=== PATIENT | female | born 1995 | race Caucasian/White ===

== ENCOUNTER 2020-03-13 13:46 | Emergency (ER) | payer OTHER ==
[~2020-03-13] VITALS: Ht 170.2 cm; Wt 80.6 kg
[~2020-03-13 13:46] MED LIST: IBUP600T42 PO; MAPA500T2 PO
[2020-03-13] MEDS ORDERED: PARA1IUD IU (13:57)
--- OUTSIDE RECORDS SUMMARY | 2020-03-13 14:27 | CCD ---
Author Author [facility] Organization [facility] Address Unknown Phone Unavailable Support Name Relationship Address Phone FAUSTINO PATEL Next Of Kin [address] [place], [place] [id number] CHYNA VAUGHN Next Of Kin [address] [place], [place] [phone] Re-disclosure Warning The records that you are about to access may contain information from federally-assisted alcohol or drug abuse programs. If such information is present, then the following federally mandated warning applies: This information has been disclosed to you from records protected by federal confidentiality rules (42 CFR part 2). The federal rules prohibit you from making any further disclosure of this information unless further disclosure is expressly permitted by the written consent of the person to whom it pertains or as otherwise permitted by 42 CFR part 2. A general authorization for the release of medical or other information is NOT sufficient for this purpose. The Federal rules restrict any use of the information to criminally investigate or prosecute any alcohol or drug abuse patient.The records that you are about to access may contain highly sensitive health information, the redisclosure of which is protected by Article 27-F of the [facility] Public Health law. If you continue you may have access to information: Regarding HIV / AIDS; Provided by facilities licensed or operated by the [facility] Office of Mental Health; or Provided by the [facility] Office for People With Developmental Disabilities. If such information is present, then the following [facility] mandated warning applies: This information has been disclosed to you from confidential records which are protected by state law. State law prohibits you from making any further disclosure of this information without the specific written consent of the person to whom it pertains, or as otherwise permitted by law. Any unauthorized further disclosure in violation of state law may result in a fine or halfway sentence or both. A general authorization for the release of medical or other information is NOT sufficient authorization for further disc losure. Insurance Providers Payer name Policy type / Coverage type Policy ID Covered republican ID Covered republican's relationship to archuleta Policy Archuleta Plan Information [facility] [id number] [facility] [id number] [facility] [id number]
--- NOTE | 2020-03-13 15:30 | REP ---
INDICATION: heavy bleeding, paraguard insertion 03/04 concern for placeme. COMPARISON: None. TECHNIQUE: Transabdominal scanning is performed.. FINDINGS: Uterine dimensions are normal at 8.1 x 4.5 x 6.0 cm. Endometrial echo is 0.6 cm thick and centrally placed. No free fluid is seen in the cul-de-sac. Visualized bladder marquez are smooth. An IUD is seen in good position in the uterine endometrium. The right ovary has dimensions of 4.3 x 2.3 x 2.6 cm. It's Doppler flow is normal with a resistive index of 0.57. There is a 2.4 x 1.9 by 2.4 cm cyst in the right ovary. The left ovary dimensions are normal as well at 2.7 x 1.4 x 1.8 cm. It's Doppler flow was normal with resistive index of 0.50. IMPRESSION: Normal pelvic sonography. IUD in good position. 2.4 cm follicle cyst right ovary. <Electronically signed by Kyle Cee > 03/13/20 [id number]
[2020-03-13 15:43] LABS: HEMATOCRIT 40.6 % (36.0-47.0); HEMOGLOBIN 12.9 g/dl (12.0-15.5); MEAN CORPUSCULAR HEMOGLOBIN 29.8 pg (27.0-33.0); MEAN CORPUSCULAR HGB CONC 31.8 g/dl (32.0-36.5); MEAN CORPUSCULAR VOLUME 93.8 fl (80.0-96.0); PLATELET COUNT, AUTOMATED 350 10^3/uL (150-450); RED BLOOD COUNT 4.33 10^6/uL (4.00-5.40); WHITE BLOOD COUNT 8.3 10^3/uL (4.0-10.0)
[2020-03-13 16:11] VITALS: BP 118/64
== END 2020-03-13 16:12 | disposition home or self-care (01) ==
LOC: M ED 13:46
DX: N92.6 Irregular menstruation, unspecified (principal); Z88.0 Allergy status to penicillin; Z97.5 Presence of (intrauterine) contraceptive device

== ENCOUNTER → 2020-10-20 | Outpatient (CLI) | payer OTHER ==
[~2020-10-20] MED LIST changes: +PARA1IUD IU
--- NOTE | 2020-10-20 08:46 | REP ---
INDICATION: RT OVARIAN CYST. Dyspareunia. COMPARISON: Comparison pelvic sonography March 13, 2020. 2.0 cm para ovarian cyst by prior sonography. TECHNIQUE: Transabdominal and transvaginal scanning were performed. FINDINGS: Uterine dimensions are normal at 9.1 x 4.9 x 6.9 cm. Endometrial echo is 1.0 cm thick and centrally placed. Minimal free fluid is seen in the cul-de-sac. Visualized bladder marquez are smooth. IUD is seen in good position in the endometrium. There is a trace amount of endometrial fluid adjacent the IUD. The right ovary has dimensions of 4.0 x 2.8 x 3.1 cm. It's Doppler flow is normal with a resistive index of 0.56. There is a 2.7 x 2.0 x 1.9 cm para ovarian cyst. An involuting follicle is seen in the right ovary itself 2.2 cm in greatest diameter. The left ovary dimensions are normal as well at 2.4 x 2.4 x 3.1 cm. It's Doppler flow was normal with resistive index of 0.45. IMPRESSION: IUD is seen in good position. There is a 2.7 cm paraovarian cyst in the right adnexa. Otherwise negative. <Electronically signed by Kyle Cee > 10/20/20 [id number]
== END ==
LOC: M RAD 07:03
PROVIDERS: ATTEND Nurse Practitioner Women's Health
DX: N83.291 Other ovarian cyst, right side (principal); Z97.5 Presence of (intrauterine) contraceptive device

== ENCOUNTER 2021-06-23 16:20 | Emergency (ER) | payer OTHER ==
[~2021-06-23] VITALS: Ht 170.2 cm; Wt 83.3 kg
[2021-06-23 16:21] VITALS: BP 121/77
== END 2021-06-23 16:47 | disposition left against medical advice (07) ==
LOC: M ED 16:20
DX: Z53.21 Procedure and treatment not carried out due to patient leaving prior to being seen by health care provider (principal)

== ENCOUNTER → 2022-10-09 | Outpatient (REF) | payer OTHER | LOC: M LAB REF 11:44 | PROVIDERS: ATTEND Physician Assistant | DX: R30.0 Dysuria (principal) ==

== ENCOUNTER → 2022-12-20 | Outpatient (REF) | payer OTHER | LOC: M LAB REF 11:28 | PROVIDERS: ATTEND Nurse Practitioner Family | DX: R11.2 Nausea with vomiting, unspecified (principal); R19.7 Diarrhea, unspecified ==

== ENCOUNTER → 2024-12-24 | Outpatient (REF) | payer OTHER ==
[2024-12-24 18:45] LABS: BASO # 0.0 10^3/uL (0.0-0.2); BASO % 0.5 % (0.0-1.0); EOS # 0.1 10^3/uL (0.0-0.5); EOS % 1.8 % (0.0-3.0); LYMPH # 1.6 10^3/uL (1.5-5.0); LYMPH % 25.9 % (24.0-44.0); MONO # 0.4 10^3/uL (0.0-0.8); MONO % 6.7 % (2.0-8.0); NEUTROPHILS # 4.0 10^3/uL (1.5-8.5); NEUTROPHILS % 64.9 % (36.0-66.0); PLATELET COUNT, AUTOMATED 309 10^3/uL (150-450)
[2024-12-24 18:53] LABS: ALT/SGPT 14 U/L (7.0-40); AST/SGOT 15 U/L (<34); CALCIUM LEVEL 8.7 MG/DL (8.5-10.1); CARBON DIOXIDE LEVEL 26 MMOL/L (20-31); CHLORIDE LEVEL 104 MMOL/L (98-107); CHOLESTEROL LEVEL 198 MG/DL (<200); CHOLESTEROL RISK RATIO 3.30 (<5); CREATININE FOR GFR 0.68 MG/DL (0.55-1.30); GLOMERULAR FILTRATION RATE > 90.0 (>60); LDL CHOLESTEROL 113.6 MG/DL (<100); NON-HDL-C 138.0 MG/DL; POTASSIUM SERUM 4.1 MMOL/L (3.5-5.1); SODIUM LEVEL 140 MMOL/L (136-145); TRIGLYCERIDES LEVEL 122 MG/DL (<150)
[2024-12-24 18:54] LABS: TOTAL 25(OH) VITAMIN D 18.9 NG/ML (20.0-100.0)
[2024-12-24 19:00] LABS: ESTIMATED AVERAGE GLUCOSE 97.0 MG/DL (60-110)
[2024-12-24 19:36] LABS: HIV 1&2 SCREEN NEGATIVE (NEGATIVE)
[2024-12-24 19:43] LABS: HEPATITIS C VIRUS ABY INDEX < 0.02 INDEX (<0.8)
[2024-12-26 14:22] LABS: HPV APTIMA Not Detected (Not Detected)
== END ==
LOC: M SFHCLERA 08:24
PROVIDERS: ATTEND Student in an Organized Health Care Education/Training Program
DX: Z00.00 Encounter for general adult medical examination without abnormal findings (principal); Z12.4 Encounter for screening for malignant neoplasm of cervix; R87.5 Abnormal microbiological findings in specimens from female genital organs